=== PATIENT | male | born 1970 | race Caucasian/White ===

== ENCOUNTER 2016-09-22 03:11 | Emergency (ER) | payer OTHER ==
[2016-09-22] MEDS ORDERED: SODIUM CHLORIDE 1,000 ML IV STA (03:54)
[2016-09-22] MEDS ORDERED: ONDANSETRON 4 MG/2 ML VIAL IVPUSH STA (03:54)
[2016-09-22] MEDS ORDERED: ONDANSETRON 4 MG/2 ML VIAL ONE (04:09)
--- NOTE | 2016-09-22 04:10 | PDOC ---
History of Present Illness - General History Source: Patient Exam Limitations: No Limitations - History of Present Illness Initial Comments: 09/22/16 04:14 The patient is a 46 year old male, with no significant past medical history, who presents to the emergency department complaining of nausea and vomiting for 1 day. The patient reports about 5 episodes of emesis during the past 5 hours. He describes the vomit as clear with a slight greenish tint. He reports associated abdominal pain. He denies hemoptysis, diarrhea, constipation, or changes in urination patterns. He denies any fever, chills, cough, headache, dizziness, or diaphoresis. The patient reports he works at a [employer], where he has had sick contacts. The patient denies any recent travel. Allergies: None reported. Past Surgical History: Appendectomy Social History: Non-smoker. Denies alcohol or drug use. <Tony Al - Last Filed: 09/22/16 04:13> - General History Source: Patient <Xu Hoffman - Last Filed: 09/22/16 05:37> - General Chief Complaint: Pain, Acute Stated Complaint: VOMITING/STOMACH PAIN Time Seen by Provider: 09/22/16 03:53 Past History <Tony Al - Last Filed: 09/22/16 04:13> - Past Medical History Other medical history: denies - Immunization History Immunization Up to Date: Yes - Psycho/Social/Smoking Cessation Hx Anxiety: No Suicidal Ideation: No Smoking History: Never smoked Have you smoked in the past 12 months: No Number of Cigarettes Smoked Daily: 0 Cigars Per Day: 0 Information on smoking cessation initiated: No Hx Alcohol Use: No Drug/Substance Use Hx: No <Xu Hoffman - Last Filed: 09/22/16 05:37> - Past Medical History Allergies/Adverse Reactions: Allergies Allergy/AdvReac Type Severity Reaction Status Date / Time No Known Allergies Allergy Verified 09/22/16 03:40 Home Medications: Ambulatory Orders Ondansetron [Zofran *Odt*] 4 mg SL TID #30 od.tablet 09/22/16 Review of Systems - Review of Systems Able to Perform ROS?: Yes Comments:: 09/22/16 04:14 CONSTITUTIONAL: Absent: fever, no chills, no fatigue EYES: Absent: visual changes ENT: Absent: ear pain, no sore throat CARDIOVASCULAR: Absent: chest pain, no palpitations RESPIRATORY: Absent: cough, no SOB GI: Present: +abdominal pain, +nausea, +vomiting Absent: hemoptysis, no constipation, no diarrhea GENITOURINARY: Absent: dysuria, no frequency, no hematuria MUSKULOSKELETAL: Absent: back pain, no arthralgia, no myalgia SKIN: Absent: rash NEURO: Absent: headache <Tony Al - Last Filed: 09/22/16 04:13> *Physical Exam - Vital Signs Last Vital Signs Temp Pulse Resp BP Pulse Ox 98.1 F 79 20 121/74 100 09/22/16 03:40 09/22/16 03:40 09/22/16 03:40 09/22/16 03:40 09/22/16 03:40 - Physical Exam Comments: 09/22/16 04:14 GENERAL: Well-appearing, well-nourished. No apparent distress. HEENT: Normocephalic, atraumatic. PERRL, EOM intact. CARDIOVASCULAR: Normal S1, S2. Regular rate and rhythm. PULMONARY: Clear to auscultation bilaterally. ABDOMEN: Soft, non-distended. Mild tenderness to palpation in all quadrants, but no guarding or rebound. EXTREMITIES: Normal ROM in all four extremities. No gross deformities. SKIN: Warm, dry. No rash NEUROLOGICAL: No focal neurological deficits. <Tony Al - Last Filed: 09/22/16 04:13> - Vital Signs Last Vital Signs Temp Pulse Resp BP Pulse Ox 98.1 F 79 20 121/74 100 09/22/16 03:40 09/22/16 03:40 09/22/16 03:40 09/22/16 03:40 09/22/16 03:40 <Xu Hoffman - Last Filed: 09/22/16 05:37> ED Treatment Course - LABORATORY CBC & Chemistry Diagram: 09/22/16 04:15 09/22/16 04:15 <Xu Hoffman - Last Filed: 09/22/16 05:37> Medical Decision Making - Medical Decision Making 09/22/16 05:37 Dr. Hoffman: The scribe's documentation has been prepared under my direction and personally reviewed by me in its entirery. I confirm that the note above accurately reflects all work, treatment, procedures, and medical decision making performed by me. <Xu Hoffman - Last Filed: 09/22/16 05:37> *DC/Admit/Observation/Transfer - Attestations Scribe Attestion: 09/22/16 04:15 Documentation prepared by Tony Al, acting as medical administrative specialist for Xu Hoffman DO. <Tony Al - Last Filed: 09/22/16 04:13> - Discharge Dispostion Admit: No <Xu Hoffman - Last Filed: 09/22/16 05:37> Diagnosis at time of Disposition: Abdominal pain Qualifiers: Abdominal location: generalized Qualified Code(s): R10.84 - Generalized abdominal pain - Discharge Dispostion Disposition: HOME Condition at time of disposition: Stable - Patient Instructions Printed Discharge Instructions: DI for Abdominal Pain-Adult - Post Discharge Activity Work/School Note: Back to Work
[2016-09-22 04:19] VITALS: BP 121/74; PULSE 79; TEMP 98.1; BMI 26.1
[2016-09-22 04:27] LABS: BASOPHIL 0.1 % (0-2.0); MCH 32.5 pg (25.7-33.7); MCHC 34.3 g/dl (32.0-35.9); MEAN CELL VOLUME 94.9 fl (80-96); NEUTROPHILS 86.8 % (42.8-82.8); PLATELET COUNT 131 K/MM3 (134-434); RDW 12.1 % (11.9-15.9); WHITE BLOOD COUNT 6.2 K/mm3 (4.0-10.0)
[2016-09-22 04:54] LABS: ALBUMIN 4.2 g/dl (3.4-5.0); ALK PHOS 61 U/L (45-117); ANION GAP 8 (8-16); CALCIUM 8.6 mg/dL (8.5-10.1); CO2 29 mmol/L (21-32); CREATININE 1.2 mg/dL (0.7-1.3); GLUCOSE,RANDOM 108 mg/dL (74-106); SGOT/AST 23 U/L (15-37); SGPT/ALT 35 U/L (12-78); TOT PROT 6.9 g/dl (6.4-8.2)
== END 2016-09-22 05:44 | disposition home or self-care (01) ==
LOC: JER 03:11
PROC: 3E033GC Introduction of Other Therapeutic Substance into Peripheral Vein, Percutaneous Approach (ICD-10-PCS; principal; 2016-09-22)
PROC: 3E0337Z Introduction of Electrolytic and Water Balance Substance into Peripheral Vein, Percutaneous Approach (ICD-10-PCS; 2016-09-22)
DX: R10.84 Generalized abdominal pain (principal)
CPT/HCPCS: 36415; 80053; 85025; 99282-25

== ENCOUNTER 2017-03-12 07:49 | Emergency (ER) | payer OTHER ==
[2017-03-12 07:53] VITALS: BP 129/79; PULSE 57; TEMP 97.9; BMI 26.1
--- NOTE | 2017-03-12 08:32 | PDOC ---
History of Present Illness - General Chief Complaint: Suture/Staple Removal(Here) Stated Complaint: SUTURE REMOVAL Time Seen by Provider: 03/12/17 08:15 Past History - Past Medical History Allergies/Adverse Reactions: Allergies Allergy/AdvReac Type Severity Reaction Status Date / Time No Known Allergies Allergy Verified 03/12/17 07:53 Home Medications: Ambulatory Orders Ondansetron [Zofran *Odt*] 4 mg SL TID #30 od.tablet 09/22/16 Other medical history: PATIENT DENIES MEDICAL HX - Surgical History Appendectomy: Yes - Immunization History Immunization Up to Date: Yes - Psycho/Social/Smoking Cessation Hx Anxiety: No Suicidal Ideation: No Smoking History: Never smoked Have you smoked in the past 12 months: No Number of Cigarettes Smoked Daily: 0 Cigars Per Day: 0 Hx Alcohol Use: Yes Drug/Substance Use Hx: No *Physical Exam - Vital Signs Last Vital Signs Temp Pulse Resp BP Pulse Ox 97.9 F 57 L 16 129/79 99 03/12/17 07:51 03/12/17 07:51 03/12/17 07:51 03/12/17 07:51 03/12/17 07:51
--- NOTE | 2017-03-12 08:37 | PDOC ---
Suture Removal/Wound Check HPI - History of Present Illness Chief Complaint: Suture/Staple Removal(Here) Stated Complaint: SUTURE REMOVAL Time Seen by Provider: 03/12/17 08:15 History Source: Yes: Patient Exam Limitations: Yes: No Limitations [facility] Date of Last ED visit: 03/05/17 - Previous ED Treatment Type of procedure performed on last visit: Yes: Laceration Repair Tetanus Immunization: Yes: Given at last ED visit Antibiotics Prescribed: No - Onset of Previous Treatment Date of Occurence: 03/05/17 Comment:: 03/12/17 08:42 My chief complaint: Here for sutures removal right fourth finger History of present illness: Patient was been here on 03/05/2017 due to sustaining a laceration to his right fourth finger distal volar aspect on 2016. Patient was up-to-date with his tetanus. Patient denies any problems with wound care or any current tenderness of his digit. 03/12/17 08:43 Past History - Past Medical History Allergies/Adverse Reactions: Allergies No Known Allergies Allergy (Verified 03/12/17 07:53) Home Medications: Ambulatory Orders NK [No Known Home Medication] 03/12/17 General: Yes: no pertinent history - Immunization History Immunizations Up to Date: Yes - Social History Smoking Status: Never smoked Number of Ciarettes Per Day: 0 Cigars Per Day: 0 Suture Removal/Wound Check PE - Physical Exam Laceration/Wound Check Symptoms: reports: None Current Severity Level: None Maximum Severity Level: Mild Pain Localization: None Location of Laceration/Wound: right: Finger (rt. 4th volar finger distal ) Pain Radiation: None *Review of Systems - Review of Systems Able to Perform ROS?: Yes Constitutional: No: Symptoms Reported HEENTM: No: Symptoms Reported Respiratory: No: Symptoms reported Cardiac (ROS): No: Symptoms Reported ABD/GI: No: Symptoms Reported : No: Symptoms Reported Musculoskeletal: No: Symptoms Reported Integumentary: Yes: Other (4 sutures interrupted rt 4th volar finger ) Neurological: No: Symptoms reported Procedures - Consent Consent obtained: From Patient - Laceration/Wound Repair Right Distal Volar Finger 4th digit Progress: 03/12/17 08:34 wound rt. distal volar finger cleansed with betadine and NS 0.9 % [address] without complications wound edges well approximated, bacitracin ointment applied, bnandaid Medical Decision Making - Medical Decision Making 03/12/17 08:43 Patient was been here on 03/05/2017 due to sustaining a laceration to his right fourth finger distal volar aspect on 03/05/2017. Patient was up-to-date with his tetanus. Patient denies any problems with wound care or any current tenderness of his digit. *DC/Admit/Observation/Transfer Diagnosis at time of Disposition: Visit for suture removal - Patient Instructions Additional Instructions: Wound on right fourth finger with antibacterial soap and water pat dry and apply a tiny amount of bacitracin ointment until scab falls off and cover with Band-Aid when out of the home let air out at home until totally healed return to emergency room if any redness or discharge from wound or signs of infection Patient voiced Understanding of discharge instructions and all questions were answered
== END 2017-03-12 08:58 | disposition home or self-care (01) ==
LOC: JERFT 07:49
DX: Z48.02 Encounter for removal of sutures (principal)
CPT/HCPCS: 99281-25

== ENCOUNTER 2018-10-08 08:58 | Day surgery (SDC) | payer OTHER ==
[2018-10-07 12:12] VITALS: BMI 28.0
[2018-10-08 11:34] VITALS: TEMP 97.6
[2018-10-08 12:08] VITALS: BP 111/70; PULSE 71
--- NOTE | 2018-10-09 15:08 | PATH ---
Surgical Pathology Report Patient Name: JOSE LUIS GUZMÁN [facility]. Rec. #: [id number] /Age/Gender: 1970 (Age: 48) / M Account: [id number] Location: U-ENDOSCOPY Taken: 10/08/2018 Received: 10/08/2018 Reported: 10/09/2018 Physicians: Reinier Cantor D.O. Specimen(s) Received A: BX DUODENAL BULB B: BX STOMACH C: BX FUNDUS D: BX GE JUNCTION Clinical History Reflux Postoperative diagnosis: Esophagitis, duodenal bulb r/o lipoma, fundus ulcer, hiatal hernia, GE junction erosion Final Diagnosis A. DUODENAL BULB, NODULE, BIOPSY: DUODENAL MUCOSA WITH MODERATE ACUTE AND CHRONIC DUODENITIS, MILD JOSH'S GLAND HYPERPLASIA, AND PROMINENT LYMPHOID AGGREGATE. B. STOMACH, BIOPSY: GASTRIC BODY MUCOSA WITH MILD CHRONIC GASTRITIS. IMMUNOHISTOCHEMICAL STAIN FOR H. PYLORI IS NEGATIVE. C. STOMACH, FUNDUS, ULCER, BIOPSY: GASTRIC MUCOSA WITH MILD CHRONIC GASTRITIS. IMMUNOHISTOCHEMICAL STAIN FOR H. PYLORI IS NEGATIVE. D. GE JUNCTION, EROSION, BIOPSY: SQUAMOCOLUMNAR MUCOSA WITH MILD CHRONIC FOCAL ACUTE INFLAMMATION AND CHANGES OF SEVERE REFLUX ESOPHAGITIS. NO INTESTINAL METAPLASIA OR DYSPLASIA IDENTIFIED. FOCAL DETACHED FRAGMENTS OF ACUTE INFLAMMATORY EXUDATE CONSISTENT WITH ULCER BED. PAS FUNGAL SPECIAL STAIN IS NEGATIVE. Electronically Signed Mag John M.D. Gross Description A. Received in formalin, labeled "biopsy duodenal bulb nodule" are 2 fernández, irregular portions of soft tissue measuring 0.3 and 0.4 cm. in greatest dimension. The specimens are submitted in toto in one cassette. B. Received in formalin, labeled "biopsy stomach" are 4 fernández, irregular portions of soft tissue ranging from 0.1-0.4 cm. in greatest dimension. The specimens are submitted in toto in one cassette. C. Received in formalin, labeled "biopsy ulcer of fundus" is a fernández, irregular portion of soft tissue measuring 0.3 cm. in greatest dimension. The specimen is submitted in toto in one cassette. D. Received in formalin, labeled "biopsy GE junction erosion" are 4 fernández, irregular portions of soft tissue ranging from 0.1-0.2 cm. in greatest dimension. The specimens are submitted in toto in one cassette. 10/08/2018/2019
== END 2018-10-08 12:15 | disposition home or self-care (01) ==
LOC: JOR 08:58 → JASU-ENDO 08:58
PROVIDERS: ATTEND Internal Medicine Gastroenterology
PROC: 0DB68ZX Excision of Stomach, Via Natural or Artificial Opening Endoscopic, Diagnostic (ICD-10-PCS; 2018-10-08)
PROC: 0DB58ZX Excision of Esophagus, Via Natural or Artificial Opening Endoscopic, Diagnostic (ICD-10-PCS; 2018-10-08)
PROC: 0DB98ZX Excision of Duodenum, Via Natural or Artificial Opening Endoscopic, Diagnostic (ICD-10-PCS; principal; 2018-10-08 10:15)
DX: K21.0 Gastro-esophageal reflux disease with esophagitis (principal); K44.9 Diaphragmatic hernia without obstruction or gangrene; K25.9 Gastric ulcer, unspecified as acute or chronic, without hemorrhage or perforation; K29.80 Duodenitis without bleeding; K29.50 Unspecified chronic gastritis without bleeding
CPT/HCPCS: 88305-TC; 88312-TC; 88342-TC

== ENCOUNTER 2018-10-22 08:08 | Day surgery (SDC) | payer OTHER ==
[2018-10-21 13:00] VITALS: BMI 28.0
[2018-10-22 10:09] VITALS: TEMP 97.9
[2018-10-22 11:04] VITALS: BP 99/64; PULSE 64
--- NOTE | 2018-10-23 17:23 | PATH ---
Surgical Pathology Report Patient Name: JOSE LUIS GUZMÁN [facility]. Rec. #: [id number] /Age/Gender: 1970 (Age: 48) / M Account: [id number] Location: U-ENDOSCOPY Taken: 10/22/2018 Received: 10/22/2018 Reported: 10/23/2018 Physicians: Reinier Cantor D.O. Specimen(s) Received A: HEPATIC FLEXURE POLYP BIOPSY B: PROXIMAL TRANSVERSE COLON POLYP BIOPSY C: SIGMOID POLYP BIOPSY D: RECTOSIGMOID POLYP BIOPSY Clinical History Screening Postoperative diagnosis: Colon polyps and hemorrhoids Final Diagnosis A. HEPATIC FLEXURE, POLYP, BIOPSY: HYPERPLASTIC POLYP. B. PROXIMAL TRANSVERSE COLON, POLYP, BIOPSY: COLONIC MUCOSA WITH SUPERFICIAL HYPERPLASTIC FEATURES. C. SIGMOID COLON, POLYP, BIOPSY: HYPERPLASTIC POLYP. D. RECTOSIGMOID COLON, POLYP, BIOPSY: HYPERPLASTIC POLYP. Electronically Signed Mag John M.D. Gross Description A. Received in formalin, labeled "hepatic flexure biopsy" is a fernández, irregular portion of soft tissue measuring 0.3 cm. in greatest dimension. The specimen is submitted in toto in one cassette. B. Received in formalin, labeled "proximal transverse colon polyp biopsy" is a fernández, irregular portion of soft tissue measuring 0.2 cm. in greatest dimension. The specimen is submitted in toto in one cassette. C. Received in formalin, labeled "sigmoid colon polyp biopsy" are 2 fernández, irregular portions of soft tissue averaging 0.3 cm. in greatest dimension. The specimens are submitted in toto in one cassette. D. Received in formalin, labeled "rectosigmoid colon polyp biopsy" are 2 fernández, irregular portions of soft tissue measuring 0.3 and 0.4 cm. in greatest dimension. The specimens are submitted in toto in one cassette. 10/22/2018 [place]udi10/22/2018
== END 2018-10-22 11:03 | disposition home or self-care (01) ==
LOC: JASU-ENDO 08:08
PROVIDERS: ATTEND Internal Medicine Gastroenterology
PROC: 0DBL8ZX Excision of Transverse Colon, Via Natural or Artificial Opening Endoscopic, Diagnostic (ICD-10-PCS; 2018-10-22)
PROC: 0DBN8ZX Excision of Sigmoid Colon, Via Natural or Artificial Opening Endoscopic, Diagnostic (ICD-10-PCS; principal; 2018-10-22 09:00)
DX: Z12.11 Encounter for screening for malignant neoplasm of colon (principal); D12.7 Benign neoplasm of rectosigmoid junction; D12.5 Benign neoplasm of sigmoid colon; D12.3 Benign neoplasm of transverse colon; K64.8 Other hemorrhoids
CPT/HCPCS: 88305-TC

== ENCOUNTER 2018-12-05 10:07 | Day surgery (SDC) | payer OTHER ==
[2018-12-04 14:45] VITALS: BMI 27.8
[2018-12-05 12:52] VITALS: TEMP 97.5
[2018-12-05 13:32] VITALS: BP 122/85; PULSE 66
--- NOTE | 2018-12-06 18:26 | PATH ---
Surgical Pathology Report Patient Name: JOSE LUIS GUZMÁN [facility]. Rec. #: [id number] /Age/Gender: 1970 (Age: 48) / M Account: [id number] Location: U-ENDOSCOPY Taken: 12/05/2018 Received: 12/05/2018 Reported: 12/06/2018 Physicians: Reinier Cantor D.O. Specimen(s) Received BODY OF STOMACH Clinical History History of gastric ulcer Postoperative diagnosis: Hiatal hernia, gastric erosions Final Diagnosis EROSION IN BODY OF STOMACH, BIOPSY: GASTRIC MUCOSA WITH FOCAL MILD CHRONIC GASTRITIS AND VASCULAR CONGESTION. IMMUNOSTAIN FOR H. PYLORI IS NEGATIVE. NEGATIVE FOR INTESTINAL METAPLASIA Electronically Signed Teodoro Cash M.D. Gross Description Received in formalin, labeled "erosions in body of stomach" are 3 fernández, irregular portions of soft tissue ranging from 0.3-0.4 cm. in greatest dimension. The specimens are submitted in toto in one cassette. /12/05/2018 [facility]12/05/2018
== END 2018-12-05 13:32 | disposition home or self-care (01) ==
LOC: JASU-ENDO 10:07
PROVIDERS: ATTEND Internal Medicine Gastroenterology
PROC: 0DB68ZX Excision of Stomach, Via Natural or Artificial Opening Endoscopic, Diagnostic (ICD-10-PCS; principal; 2018-12-05 10:45)
DX: K25.9 Gastric ulcer, unspecified as acute or chronic, without hemorrhage or perforation (principal); K40.90 Unilateral inguinal hernia, without obstruction or gangrene, not specified as recurrent
CPT/HCPCS: 36415; 82941; 88305-TC; 88342-TC